=== PATIENT | female | born 2000 | race Two or more races ===

== ENCOUNTER 2022-02-04 05:18 | Emergency (ER) | payer BC, MEDICAID ==
[~2022-02-04] VITALS: Ht 162.6 cm; Wt 75.7 kg
[2022-02-04] MEDS ORDERED: ALBUTEROL SULF 2.5 MG/0.5ML(0.5%) NEB SOLN NEB ONE ×2 (07:45→10:30)
[2022-02-04] MEDS ORDERED: IPRATROPIUM BROM 0.5 MG/2.5ML INH SOL NEB ONE ×2 (07:45→10:30)
[2022-02-04 08:22] LABS: Basophils # (auto) 0 10 ^3/uL (0-0.2); Basophils % (auto) 0.4 % (0.0-2.0); Eosinophils # (auto) 0.5 10 ^3/uL (0-0.8); Eosinophils % (auto) 4.4 % (0.0-7.0); Hematocrit 36.5 % (36.0-46.0); Lymphocytes # (auto) 1.9 10 ^3/uL (0.4-5.4); Lymphocytes % (auto) 19.1 % (10.0-50.0); Mean Corpuscular Hemoglobin 28.5 pg (28.0-32.0); Mean Corpuscular Hgb Conc. 35.5 g/dL (32.0-36.0); Mean Corpuscular Volume 80.2 fL (80.0-100.0); Monocytes # (auto) 0.6 10 ^3/uL (0-1.3); Monocytes % (auto) 5.9 % (0.0-12.0); Neutrophils # (auto) 7.1 10 ^3/uL (1.6-8.6); Neutrophils % (auto) 70.2 % (37.0-80.0); Nucleated Red Blood Cells % 0.1 %; Red Blood Cells 4.55 10^6/uL (4.0-5.20); Red Cell Distribution Width 13.1 % (11.8-14.3); White Blood Cell 10.2 10^3/uL (4.4-10.8)
[2022-02-04 08:41] LABS: Albumin 3.8 g/dL (3.4-5.0); Calcium 9.1 mg/dL (8.5-10.1); Potassium 4.2 mmol/L (3.5-5.1)
[2022-02-04 08:44] LABS: BUN/Creatinine Ratio 9.7; Bilirubin, Total 0.3 mg/dL (0.2-1.0); Total Protein 7.7 g/dL (6.4-8.2)
[2022-02-04] MEDS ORDERED: methylPREDNISolone SOD SUCC 125 MG/2 ML VL IV ONE (10:30)
[2022-02-04] MEDS ORDERED: ALBUAER3 IN (10:57)
[2022-02-04] MEDS ORDERED: PRED20TA2 PO (10:57)
[2022-02-04] MEDS ORDERED: AZIT250T9 PO (10:57)
[2022-02-04 12:45] VITALS: BP 117/66
== END 2022-02-04 13:05 | disposition home or self-care (01) ==
LOC: ER 05:18
DX: J45.909 Unspecified asthma, uncomplicated (principal)
CPT/HCPCS: 36415; 71045; 80053; 84484; 85025; 94640; 96374; 99285; J2930; J7644

== ENCOUNTER → 2022-08-02 | Outpatient (CLI) | payer BC ==
[~2022-08-02] MED LIST: ALBUAER3 IN; AZIT250T9 PO; PRED20TA2 PO
== END | disposition home or self-care (01) ==
LOC: LAB 13:50
PROVIDERS: ATTEND Student in an Organized Health Care Education/Training Program
DX: R63.5 Abnormal weight gain (principal); Z83.49 Family history of other endocrine, nutritional and metabolic diseases
CPT/HCPCS: 36415; 84439; 84443

== ENCOUNTER → 2023-03-08 | Outpatient (CLI) | payer BC ==
[~2023-03-08] MED LIST changes: +AZIT-43 PO; -AZIT250T9 PO
[2023-03-08 15:42] LABS: Calcium 8.7 mg/dL (8.5-10.1); Potassium 4.4 mmol/L (3.5-5.1)
[2023-03-08 15:50] LABS: Prolactin 4.36 ng/mL (2.8-29.2)
[2023-03-08 15:51] LABS: Follicle Stimulating Hormone 2.66 IU/L (SEE BELOW)
[2023-03-08 15:55] LABS: Beta HCG, Quantitative < 1 mlU/mL (1-3); Thyroid Stimulating Hormone 1.85 uIU/mL (0.358-3.74)
== END | disposition home or self-care (01) ==
LOC: LAB 14:39
PROVIDERS: ATTEND Student in an Organized Health Care Education/Training Program
DX: N91.2 Amenorrhea, unspecified (principal)
CPT/HCPCS: 36415; 80048; 80061; 82670; 83001; 84146; 84443; 84702